=== PATIENT | female | born 1975 | race African-American/Black ===

== ENCOUNTER → 2016-12-22 | Outpatient (CLI) | payer OTHER ==
[2015-01-06 22:00] VITALS: BP 151/86
--- NOTE | 2016-12-22 12:26 | RAD ---
Chest, 2 views, 12/22/2016: History: Cough, dyspnea, lung nodule Comparison is made to a study from 10/17/2013. The heart size and pulmonary vascularity are normal. No pulmonary infiltrates are seen. There is a calcified granuloma in the left base. There is no evidence of pleural fluid. IMPRESSION: No acute cardiopulmonary abnormality is detected.
== END | disposition home or self-care (01) ==
LOC: RAD 11:41
PROVIDERS: ATTEND Family Medicine
DX: R06.00 Dyspnea, unspecified (principal); R05 Cough; R07.89 Other chest pain
CPT/HCPCS: 71020

== ENCOUNTER 2017-05-16 19:15 | Emergency (ER) | payer OTHER ==
[~2017-05-16] VITALS: Ht 154.9 cm; Wt 81.6 kg
[2017-05-16 20:00] LABS: BASO % 0 % (0-3); EOS % 2 % (0-3); HEMATOCRIT 41.6 % (36.0-47.0); HEMOGLOBIN 12.9 g/dL (12.0-15.5); LYMPH # 1.9 x10^3/uL (1.0-4.8); LYMPH % 17 % (24-48); MEAN CORPUSCULAR HEMOGLOBIN 22 pg (25-35); MEAN CORPUSCULAR HGB CONC 31 g/dL (31-37); MEAN CORPUSCULAR VOLUME 71 fL (79-100); MONO % 5 % (0-9); NEUT % 76 % (31-73); PLATELET COUNT 215 x10^3/uL (140-400); RED BLOOD COUNT 5.83 x10^6/uL (3.50-5.40); RED CELL DISTRIBUTION WIDTH 14.5 % (11.5-14.5); WHITE BLOOD COUNT 11.1 x10^3/uL (4.0-11.0)
[2017-05-16] MEDS ORDERED: HYDROmorphone 2 MG/ML VIAL IV ONE ×2 (20:00→21:45)
[2017-05-16] MEDS ORDERED: ONDANSETRON PF 4 MG/2 ML VIAL. IV ONE (20:00)
[2017-05-16] MEDS ORDERED: IV NORMAL SALINE 1000ML BAG 1,000 ML IV ONE (20:00)
[2017-05-16 20:02] LABS: BILIRUBIN,URINE NEGATIVE (NEG); GLUCOSE,URINE NEGATIVE (NEG); NITRITE,URINE NEGATIVE (NEG); PH,URINE 5.5; PROTEIN,URINE NEGATIVE (NEG-TRACE); UROBILINOGEN,URINE 0.2 mg/dL (0.2 mg/dL)
[2017-05-16 20:17] LABS: BACTERIA,URINE 0 /HPF (0-FEW); RBC,URINE 0 /HPF (0-2); SQUAMOUS EPITHELIAL CELL,UR FEW /LPF; WBC,URINE 0 /HPF (0-4)
[2017-05-16 20:18] LABS: CALCIUM 8.9 mg/dL (8.5-10.1); CREATININE 0.7 mg/dL (0.6-1.0); GFR 112.1; POTASSIUM 3.6 mmol/L (3.5-5.1)
[2017-05-16 20:22] LABS: ALBUMIN 3.9 g/dL (3.4-5.0); TOTAL BILIRUBIN 0.5 mg/dL (0.2-1.0); TOTAL PROTEIN 7.9 g/dL (6.4-8.2)
[2017-05-16 20:45] LABS: HYPOCHROMIA MOD; MICROCYTOSIS MOD; PLT ESTIMATE ADEQUATE (ADEQUATE); POIKILOCYTOSIS SLIGHT
--- NOTE | 2017-05-16 20:49 | RAD ---
EXAM: Abdomen sonogram limited. HISTORY: Right upper quadrant pain. TECHNIQUE: Sonographic imaging of the abdomen was performed. COMPARISON: CT dated 01/06/2015. FINDINGS: There is mild hepatomegaly. No focal hepatic lesion is seen. The gallbladder is unremarkable. The common bile duct is normal in caliber, measuring 3.6 mm. The right kidney, pancreas and inferior vena cava are unremarkable. There is a positive sonographic Mcgill's sign. IMPRESSION: 1. Positive sonographic Mcgill's sign. The gallbladder is sonographically unremarkable. 2. Mild hepatomegaly. Electronically signed by: Danae Lee MD (05/16/2017 8:45 PM)
[2017-05-16] MEDS ORDERED: HYOS0.1265 SL (21:44)
--- NOTE | 2017-05-16 21:44 | PHYS DOC ---
Past Medical History Past Medical History: Asthma, GERD, Hypertension Additional Past Medical Histor: constipation, "digestive problems" Past Surgical History: Hysterectomy Additional Past Surgical Histo: hernia Alcohol Use: None Drug Use: None Adult General Chief Complaint Chief Complaint: ABDOMINAL PAIN HPI HPI Patient is a 42 year old female who presents here today complaining of right- sided pain. Patient reports pain in the upper quadrant. Patient has any fevers shakes chills. Patient did have nausea vomiting today while she was worked. Patient has a dysuria frequency or urgency. Patient denies any vaginal discharge. Patient does have a history of hypertension. And asthma. Patient has a liver longer kidney problems. Patient reports that she's had surgery for hysterectomy and a hemorrhagic ovarian cyst. Patient is allergic to multiple nonsteroidal medications. Patient reports the pain is colicky in nature. Patient reports that the pain increases after meals. Review of systems Constitutional: Denies fever or chills [] Eyes: Denies change in visual acuity, redness, or eye pain [] All other review systems are negative except as documented in the history of present illness portion. Physical exam Constitutional: Well developed, well nourished, no acute distress, non-toxic appearance. [] HENT: Normocephalic, atraumatic, bilateral external ears normal, oropharynx moist, no oral exudates, nose normal. [] Eyes: conjunctiva normal, no discharge. [] Neck: Normal range of motion, no tenderness, supple, no stridor. [] Cardiovascular:Heart rate regular rhythm, Lungs & Thorax: Bilateral breath sounds clear to auscultation [] Abdomen: Bowel sounds normal, soft, no tenderness, no masses, no pulsatile masses. Patient was tenderness greatest in the right upper quadrant. Patient has no rebound or guarding. Patient does not present with any signs or symptoms O be consistent with an acute surgical abdomen. Patient does not have a Mcgill sign. No McBurney's point tenderness. No psoas or obturator signs. [] Skin: Warm, dry, Back: No tenderness, Extremities: No tenderness, no cyanosis, Neurologic: Alert and oriented X 3, normal motor function, normal sensory function, no focal deficits noted. [] Psychologic: Affect normal, judgement normal, mood normal. [] This is a 42-year-old female who presents here today complaining of right upper quadrant pain. Pain is consistent with likely cholelithiasis. Patient had a ER workup including CBC CMP lipase and an ultrasound of her right upper quadrant. Patient's ER workup has been unremarkable. Patient has received Dilaudid and Zofran as well as IV fluids. Patient reports she still has some discomfort. Given the patient's allergic to multiple nonsteroidals, the only choice we had was narcotic pain meds in the ED. I do not feel comfortable sending of the patient with narcotic pain meds for this discomfort. I have given her 2 doses of Dilaudid in the ED to assist her until she is able see her primary care doctor in the morning. Current Medications Current Medications Current Medications Medications (Trade) Dose Ordered Sig/Bhanu Start Time Stop Time Status Last Admin Dose Admin Hydromorphone HCl (Dilaudid) 1 mg 1X ONCE 05/16/17 21:45 05/16/17 21:46 Ondansetron HCl (Zofran) 4 mg 1X ONCE 05/16/17 20:00 05/16/17 20:01 DC 05/16/17 20:00 4 MG Sodium Chloride 1,000 ml @ 1,000 mls/hr 1X ONCE 05/16/17 20:00 05/16/17 20:59 DC 05/16/17 19:58 1,000 MLS/HR Allergies Allergies Allergies Coded Allergies Type Severity Reaction Last Updated Verified ibuprofen Allergy Severe Anaphylaxis 01/06/15 Yes naproxen Allergy Severe Anaphylaxis 01/06/15 Yes tramadol Allergy Intermediate rash 05/16/17 Yes Current Patient Data Vital Signs Vital Signs Date Time Temp Pulse Resp B/P (MAP) Pulse Ox O2 Delivery O2 Flow Rate FiO2 05/16/17 21:20 99 16 157/88 (111) 95 Room Air 05/16/17 19:21 98.4 98.4 Lab Values Laboratory Tests Test 05/16/17 19:27 05/16/17 19:50 White Blood Count 11.1 x10^3/uL (4.0-11.0) H Red Blood Count 5.83 x10^6/uL (3.50-5.40) H Hemoglobin 12.9 g/dL (12.0-15.5) Hematocrit 41.6 % (36.0-47.0) Mean Corpuscular Volume 71 fL (79-100) L Mean Corpuscular Hemoglobin 22 pg (25-35) L Mean Corpuscular Hemoglobin Concent 31 g/dL (31-37) Red Cell Distribution Width 14.5 % (11.5-14.5) Platelet Count 215 x10^3/uL (140-400) Neutrophils (%) (Auto) 76 % (31-73) H Lymphocytes (%) (Auto) 17 % (24-48) L Monocytes (%) (Auto) 5 % (0-9) Eosinophils (%) (Auto) 2 % (0-3) Basophils (%) (Auto) 0 % (0-3) Neutrophils # (Auto) 8.4 x10^3uL (1.8-7.7) H Lymphocytes # (Auto) 1.9 x10^3/uL (1.0-4.8) Monocytes # (Auto) 0.5 x10^3/uL (0.0-1.1) Eosinophils # (Auto) 0.2 x10^3/uL (0.0-0.7) Basophils # (Auto) 0.0 x10^3/uL (0.0-0.2) Platelet Estimate Adequate (ADEQUATE) Hypochromasia Mod Poikilocytosis Slight Anisocytosis Microcytosis Mod Sodium Level 142 mmol/L (136-145) Potassium Level 3.6 mmol/L (3.5-5.1) Chloride Level 106 mmol/L (98-107) Carbon Dioxide Level 25 mmol/L (21-32) Anion Gap 11 (6-14) Blood Urea Nitrogen 14 mg/dL (7-20) Creatinine 0.7 mg/dL (0.6-1.0) Estimated GFR (Cockcroft-Gault) 112.1 BUN/Creatinine Ratio 20 (6-20) Glucose Level 84 mg/dL (70-99) Calcium Level 8.9 mg/dL (8.5-10.1) Total Bilirubin 0.5 mg/dL (0.2-1.0) Aspartate Amino Transferase (AST) 17 U/L (15-37) Alanine Aminotransferase (ALT) 22 U/L (14-59) Alkaline Phosphatase 79 U/L (46-116) Total Protein 7.9 g/dL (6.4-8.2) Albumin 3.9 g/dL (3.4-5.0) Albumin/Globulin Ratio 1.0 (1.0-1.7) Lipase 128 U/L (73-393) Urine Collection Type Unknown Urine Color Yellow Urine Clarity Clear Urine pH 5.5 Urine Specific [place] >=1.030 Urine Protein Negative mg/dL (NEG-TRACE) Urine Glucose (UA) Negative mg/dL (NEG) Urine Ketones (Stick) Trace mg/dL (NEG) Urine Blood Negative (NEG) Urine Nitrite Negative (NEG) Urine Bilirubin Negative (NEG) Urine Urobilinogen Dipstick 0.2 mg/dL (0.2 mg/dL) Urine Leukocyte Esterase Negative (NEG) Urine RBC 0 /HPF (0-2) Urine WBC 0 /HPF (0-4) Urine Squamous Epithelial Cells Few /LPF Urine Bacteria 0 /HPF (0-FEW) Urine Mucus Mod /LPF Laboratory Tests 05/16/17 19:27 Laboratory Tests 05/16/17 19:27 EKG EKG [] Radiology/Procedures Radiology/Procedures [] Course & Med Decision Making Course & Med Decision Making Pertinent Labs and Imaging studies reviewed. (See chart for details) [] Dragon Disclaimer Dragon Disclaimer This electronic medical record was generated, in whole or in part, using a voice recognition dictation system. Departure Departure Impression: Primary Impression: Abdominal pain Disposition: 01 HOME, SELF-CARE Condition: STABLE Referrals: ALEJANDRA BURGER MD (PCP) Patient Instructions: Abdominal Pain (Nonspecific) Additional Instructions: Please make an appointment to see her family doctor so that he can get further evaluated for the pain the ER having. Her doctor may opt to perform or order a stat he called a HIDA scan in order to further assess your gallbladder. Your gallbladder studies in the ED so far have been all normal. Scripts Hyoscyamine Sulfate (LEVSIN-SL) 0.125 Mg Tab.subl 0.125 MG SL Q6-8HRS Y for abdominal cramps, #10 Prov: KATIE DIAZ MD 05/16/17 KATIE DIAZ MD May 16, 2017 21:44
[2017-05-16 21:58] VITALS: BP 155/78
== END 2017-05-16 22:05 | disposition home or self-care (01) ==
LOC: ER 19:15
DX: R10.11 Right upper quadrant pain (principal); R11.2 Nausea with vomiting, unspecified; I10 Essential (primary) hypertension; J45.909 Unspecified asthma, uncomplicated; K21.9 Gastro-esophageal reflux disease without esophagitis; Z90.710 Acquired absence of both cervix and uterus; Z88.5 Allergy status to narcotic agent; Z88.8 Allergy status to other drugs, medicaments and biological substances
CPT/HCPCS: 36415; 76705; 80053; 81001; 83690; 85007; 85027; 96361; 96374; 96375; 96376; 99285; J1170; J2405; J7030

== ENCOUNTER 2017-07-01 18:53 | Emergency (ER) | payer OTHER ==
[~2017-07-01] VITALS: Ht 154.9 cm; Wt 76.7 kg
[~2017-07-01 18:53] MED LIST: HYOS0.1265 SL
[2017-07-01 19:22] VITALS: BP 150/81
[2017-07-01] MEDS ORDERED: TRAM50TA PO (19:27)
[2017-07-01] MEDS ORDERED: ORPH100T PO (19:27)
--- NOTE | 2017-07-01 19:28 | PHYS DOC ---
Past Medical History Past Medical History: Asthma, GERD, Hypertension Additional Past Medical Histor: constipation, "digestive problems" Past Surgical History: Hysterectomy Additional Past Surgical Histo: hernia Alcohol Use: None Drug Use: None Adult General Chief Complaint Chief Complaint: UPPER EXTREMITY PAIN HPI HPI Patient is a 42 year old female presents to the emergency room [place] with right upper back pain. She states she's had discomfort for 3 days. No other complaints. 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 Review of Systems Review of Systems Constitutional: Denies fever or chills [] Eyes: Denies change in visual acuity, redness, or eye pain [] HENT: Denies nasal congestion or sore throat [] Respiratory: Denies cough or shortness of breath [] Cardiovascular: No additional information not addressed in HPI [] GI: Denies abdominal pain, nausea, vomiting, bloody stools or diarrhea [] : Denies dysuria or hematuria [] Musculoskeletal: Right upper back pain Integument: Denies rash or skin lesions [] Neurologic: Denies headache, focal weakness or sensory changes [] Endocrine: Denies polyuria or polydipsia [] Allergies Allergies Allergies Coded Allergies Type Severity Reaction Last Updated Verified ibuprofen Allergy Severe Anaphylaxis 01/06/15 Yes naproxen Allergy Severe Anaphylaxis 01/06/15 Yes tramadol Allergy Intermediate rash 05/16/17 Yes Physical Exam Physical Exam Constitutional: Well developed, well nourished, no acute distress, non-toxic appearance. [] HENT: Normocephalic, atraumatic, bilateral external ears normal, oropharynx moist, no oral exudates, nose normal. [] Eyes: PERRLA, EOMI, conjunctiva normal, no discharge. [] Neck: Normal range of motion, no paracervical or midline tenderness, supple, no stridor. [] Cardiovascular:Heart rate regular rhythm, no murmur [] Lungs & Thorax: Bilateral breath sounds clear to auscultation [] Abdomen: Bowel sounds normal, soft, no tenderness, no masses, no pulsatile masses. [] Skin: Warm, dry, no erythema, no rash. [] Back: Tenderness to palpate over the right trapezius. Extremities: No tenderness, no cyanosis, no clubbing, ROM intact, no edema. [] Neurologic: Alert and oriented X 3, normal motor function, normal sensory function, no focal deficits noted. [] Psychologic: Affect normal, judgement normal, mood normal. [] EKG EKG [] Radiology/Procedures Radiology/Procedures [] Course & Med Decision Making Course & Med Decision Making Pertinent Labs and Imaging studies reviewed. (See chart for details) [] Dragon Disclaimer Dragon Disclaimer This electronic medical record was generated, in whole or in part, using a voice recognition dictation system. Departure Departure Impression: Primary Impression: Trapezius strain Disposition: HOME, SELF-CARE Condition: STABLE Referrals: ALEJANDRA BURGER MD (PCP) Patient Instructions: Muscle Strain Scripts Tramadol Hcl (TRAMADOL HCL) 50 Mg Tablet 50 MG PO Q6H Y for PAIN, #10 TAB 0 Refills Prov: ANNA MATUTE APRN 07/01/17 Orphenadrine Citrate (ORPHENADRINE CITRATE) 100 Mg Tablet.er 1 TAB PO BID, #20 TAB 1 Refill Prov: ANNA MATUTE APRN 07/01/17 Problem Qualifiers Primary Impression: Trapezius strain Encounter type: initial encounter Laterality: right Qualified Codes: S46.811A - Strain of other muscles, fascia and tendons at shoulder and upper arm level, right arm, initial encounter ANNA MATUET APRN Jul 01, 2017 19:28
== END 2017-07-01 19:30 | disposition home or self-care (01) ==
LOC: ER 18:53
DX: S46.811A Strain of other muscles, fascia and tendons at shoulder and upper arm level, right arm, initial encounter (principal); J45.909 Unspecified asthma, uncomplicated; K21.9 Gastro-esophageal reflux disease without esophagitis; I10 Essential (primary) hypertension; Z90.710 Acquired absence of both cervix and uterus; Z88.5 Allergy status to narcotic agent; Z88.8 Allergy status to other drugs, medicaments and biological substances; Z88.6 Allergy status to analgesic agent; X58.XXXA Exposure to other specified factors, initial encounter; Y93.89 Activity, other specified; Y92.69 Other specified industrial and construction area as the place of occurrence of the external cause; Y99.8 Other external cause status
CPT/HCPCS: 99284

== ENCOUNTER 2017-08-08 00:33 | Emergency (ER) | payer OTHER ==
[~2017-08-08] VITALS: Ht 154.9 cm; Wt 76.7 kg
[~2017-08-08 00:33] MED LIST changes: +ORPH100T PO; +TRAM50TA PO
[2017-08-08 02:11] LABS: BILIRUBIN,URINE NEGATIVE (NEG); GLUCOSE,URINE NEGATIVE (NEG); NITRITE,URINE NEGATIVE (NEG); PH,URINE 5.5; PROTEIN,URINE NEGATIVE (NEG-TRACE); UROBILINOGEN,URINE 0.2 mg/dL (0.2 mg/dL)
[2017-08-08] MEDS ORDERED: FAMOTIDINE 20 MG/2 ML VIAL IVP ONE (02:15)
[2017-08-08] MEDS ORDERED: ONDANSETRON PF 4 MG/2 ML VIAL. IV ONE (02:15)
[2017-08-08] MEDS ORDERED: IV NORMAL SALINE 1000ML BAG 1,000 ML IV SCH (02:15)
[2017-08-08 02:16] LABS: BACTERIA,URINE 0 /HPF (0-FEW); RBC,URINE 0 /HPF (0-2); WBC,URINE OCC /HPF (0-4)
[2017-08-08 02:17] LABS: SQUAMOUS EPITHELIAL CELL,UR FEW /LPF
[2017-08-08 02:18] LABS: BASO # 0.1 x10^3/uL (0.0-0.2); BASO % 1 % (0-3); EOS % 3 % (0-3); HEMATOCRIT 38.8 % (36.0-47.0); LYMPH % 20 % (24-48); MEAN CORPUSCULAR HEMOGLOBIN 22 pg (25-35); MEAN CORPUSCULAR HGB CONC 31 g/dL (31-37); MEAN CORPUSCULAR VOLUME 72 fL (79-100); MONO % 8 % (0-9); NEUT % 69 % (31-73); PLATELET COUNT 198 x10^3/uL (140-400); WHITE BLOOD COUNT 9.9 x10^3/uL (4.0-11.0)
[2017-08-08] MEDS: fentaNYL PF VIAL 100 MCG/2 ML VIAL IV PRN ×2 (02:19→02:46)
[2017-08-08 02:30] LABS: CALCIUM 8.7 mg/dL (8.5-10.1); CREATININE 0.7 mg/dL (0.6-1.0); GFR 112.1; POTASSIUM 3.6 mmol/L (3.5-5.1)
[2017-08-08 02:36] LABS: ALBUMIN 3.6 g/dL (3.4-5.0); TOTAL BILIRUBIN 0.3 mg/dL (0.2-1.0); TOTAL PROTEIN 7.3 g/dL (6.4-8.2)
[2017-08-08 02:47] LABS: HYPOCHROMIA SLIGHT; MICROCYTOSIS MOD; PLT ESTIMATE ADEQUATE (ADEQUATE)
[2017-08-08] MEDS ORDERED: ONDA4TAB10 SL (03:12)
[2017-08-08] MEDS ORDERED: HYDR-971 PO (03:12)
--- NOTE | 2017-08-08 03:12 | PHYS DOC ---
Past Medical History Past Medical History: Asthma, GERD, Hypertension Additional Past Medical Histor: constipation, "digestive problems" Past Surgical History: Hysterectomy Additional Past Surgical Histo: hernia Alcohol Use: None Drug Use: None Adult General Chief Complaint Chief Complaint: ABDOMINAL PAIN HPI HPI Patient is a 42 year old female who presents with complaint of right-sided abdominal pain. Patient states symptoms started 4 days ago and have been persistent that time. Patient states that she has had multiple episodes of similar symptoms in the past and has been seen at [facility]. She has had multiple emergency department workups including ultrasound imaging and CT imaging. Patient states that she was there approximately one month ago for her last evaluation. The patient states that she has been referred to a GI specialist for further evaluation as the cause of her symptoms has not been able to be diagnosed at this time. Patient states that the pain is dull and burning in nature. Patient states that it is localized to her right upper quadrant. Patient denies radiation of pain into her back or groin. Patient has had nausea but no vomiting or diarrhea associated with her symptoms. Patient has had no fevers. The patient has taken only [id number] Tylenol for symptoms but states that this is not helping her. The patient rates her pain currently as Review of Systems Review of Systems Constitutional: Denies fever or chills [] Eyes: Denies change in visual acuity, redness, or eye pain [] HENT: Denies nasal congestion or sore throat [] Respiratory: Denies cough or shortness of breath [] Cardiovascular: Denies chest pain or edema[] GI: Abdominal pain, nausea, denies vomiting or diarrhea[] : Denies dysuria or hematuria [] Musculoskeletal: Denies back pain or joint pain [] Integument: Denies rash or skin lesions [] Neurologic: Denies headache, focal weakness or sensory changes [] Current Medications Current Medications Current Medications Medications (Trade) Dose Ordered Sig/Bhanu Start Time Stop Time Status Last Admin Dose Admin Famotidine (Pepcid) 20 mg 1X ONCE 08/08/17 02:15 08/08/17 02:16 DC 08/08/17 02:18 20 MG Fentanyl Citrate (Fentanyl 2ml Vial) 50 mcg PRN Q15MIN PRN 08/08/17 02:15 08/09/17 02:14 08/08/17 02:46 50 MCG Ondansetron HCl (Zofran) 4 mg 1X ONCE 08/08/17 02:15 08/08/17 02:16 DC 08/08/17 02:17 4 MG Sodium Chloride 1,000 ml @ 1,000 mls/hr Q1H 08/08/17 02:15 08/08/17 03:14 08/08/17 02:17 1,000 MLS/HR Allergies Allergies Allergies Coded Allergies Type Severity Reaction Last Updated Verified ibuprofen Allergy Severe Anaphylaxis 01/06/15 Yes naproxen Allergy Severe Anaphylaxis 01/06/15 Yes tramadol Allergy Intermediate rash 05/16/17 Yes Physical Exam Physical Exam Constitutional: Alert, afebrile, appears in mild to moderate discomfort. [] HENT: Normocephalic, atraumatic, bilateral external ears normal, oropharynx moist, no oral exudates, nose normal. [] Eyes: PERRLA, EOMI, conjunctiva normal, no discharge. [] Neck: Normal range of motion, no tenderness, supple, no stridor. [] Cardiovascular:Heart rate regular rhythm, no murmur [] Lungs & Thorax: Bilateral breath sounds clear to auscultation [] Abdomen: Bowel sounds normal, soft, right upper quadrant tenderness to palpation , no masses, no pulsatile masses. [] Skin: Warm, dry, no erythema, no rash. [] Back: No tenderness, no CVA tenderness. [] Extremities: No tenderness, no cyanosis, no clubbing, ROM intact, no edema. [] Neurologic: Alert and oriented X 3, normal motor function, normal sensory function, no focal deficits noted. [] Current Patient Data Vital Signs Vital Signs Date Time Temp Pulse Resp B/P (MAP) Pulse Ox O2 Delivery O2 Flow Rate FiO2 08/08/17 01:55 98.1 89 18 136/79 (98) 98 Room Air 98.1 Lab Values Laboratory Tests Test 08/08/17 01:18 08/08/17 02:04 08/08/17 02:11 Urine Collection Type Unknown Urine Color Yellow Urine Clarity Clear Urine pH 5.5 Urine Specific [place] >=1.030 Urine Protein Negative mg/dL (NEG-TRACE) Urine Glucose (UA) Negative mg/dL (NEG) Urine Ketones (Stick) Negative mg/dL (NEG) Urine Blood Negative (NEG) Urine Nitrite Negative (NEG) Urine Bilirubin Negative (NEG) Urine Urobilinogen Dipstick 0.2 mg/dL (0.2 mg/dL) Urine Leukocyte Esterase Negative (NEG) Urine RBC 0 /HPF (0-2) Urine WBC Occ /HPF (0-4) Urine Squamous Epithelial Cells Few /LPF Urine Bacteria 0 /HPF (0-FEW) Urine Mucus Mod /LPF POC Urine HCG, Qualitative Hcg negative (Negative) White Blood Count 9.9 x10^3/uL (4.0-11.0) Red Blood Count 5.40 x10^6/uL (3.50-5.40) Hemoglobin 12.0 g/dL (12.0-15.5) Hematocrit 38.8 % (36.0-47.0) Mean Corpuscular Volume 72 fL (79-100) L Mean Corpuscular Hemoglobin 22 pg (25-35) L Mean Corpuscular Hemoglobin Concent 31 g/dL (31-37) Red Cell Distribution Width 15.0 % (11.5-14.5) H Platelet Count 198 x10^3/uL (140-400) Neutrophils (%) (Auto) 69 % (31-73) Lymphocytes (%) (Auto) 20 % (24-48) L Monocytes (%) (Auto) 8 % (0-9) Eosinophils (%) (Auto) 3 % (0-3) Basophils (%) (Auto) 1 % (0-3) Neutrophils # (Auto) 6.8 x10^3uL (1.8-7.7) Lymphocytes # (Auto) 2.0 x10^3/uL (1.0-4.8) Monocytes # (Auto) 0.8 x10^3/uL (0.0-1.1) Eosinophils # (Auto) 0.3 x10^3/uL (0.0-0.7) Basophils # (Auto) 0.1 x10^3/uL (0.0-0.2) Platelet Estimate Adequate (ADEQUATE) Hypochromasia Slight Microcytosis Mod Sodium Level 142 mmol/L (136-145) Potassium Level 3.6 mmol/L (3.5-5.1) Chloride Level 106 mmol/L (98-107) Carbon Dioxide Level 26 mmol/L (21-32) Anion Gap 10 (6-14) Blood Urea Nitrogen 16 mg/dL (7-20) Creatinine 0.7 mg/dL (0.6-1.0) Estimated GFR (Cockcroft-Gault) 112.1 BUN/Creatinine Ratio 23 (6-20) H Glucose Level 117 mg/dL (70-99) H Calcium Level 8.7 mg/dL (8.5-10.1) Total Bilirubin 0.3 mg/dL (0.2-1.0) Aspartate Amino Transferase (AST) 12 U/L (15-37) L Alanine Aminotransferase (ALT) 14 U/L (14-59) Alkaline Phosphatase 75 U/L (46-116) Total Protein 7.3 g/dL (6.4-8.2) Albumin 3.6 g/dL (3.4-5.0) Albumin/Globulin Ratio 1.0 (1.0-1.7) Lipase 159 U/L (73-393) Laboratory Tests 08/08/17 02:11 Laboratory Tests 08/08/17 02:11 EKG EKG Not performed[] Radiology/Procedures Radiology/Procedures Not performed[] Course & Med Decision Making Course & Med Decision Making Pertinent Labs and Imaging studies reviewed. (See chart for details) Patient was given IV fluids, Zofran, and fentanyl in the emergency department. Patient's lab work shows no significant abnormalities. Patient's had multiple workups for the symptoms and is currently awaiting GI follow-up. Patient's vital signs are stable. Workup shows no indication for emergent GI evaluation. Patient will be prescribed [place] and Zofran for continued outpatient treatment of symptoms. Advised return emergency department for any worsening symptoms. Patient voiced understanding and in agreement with treatment plan. Dragon Disclaimer Dragon Disclaimer This electronic medical record was generated, in whole or in part, using a voice recognition dictation system. Departure Departure Impression: Primary Impression: Abdominal pain Disposition: 01 HOME, SELF-CARE Condition: IMPROVED Referrals: ALEJANDRA BURGER MD (PCP) Patient Instructions: Abdominal Pain Additional Instructions: Follow-up with your primary doctor in the next 3-5 days for reevaluation. Follow -up with your follow up rep in the next 1-2 weeks. Return to the emergency department for any worsening symptoms. Scripts Ondansetron (ZOFRAN ODT) 4 Mg Tab.rapdis 1 TAB SL Q8HRS Y for PAIN, #15 TAB Prov: DIMITRI MONTGOMERY MD 08/08/17 Hydrocodone/Apap 5-325 (NORCO 5-325 TABLET) 1 Each Tablet 1-2 TAB PO Q4-6HRS Y for PAIN, #20 TAB Prov: DIMITRI MONTGOMERY MD 08/08/17 Problem Qualifiers Primary Impression: Abdominal pain Abdominal location: right upper quadrant Qualified Codes: R10.11 - Right upper quadrant pain DIMITRI MONTGOMERY MD Aug 08, 2017 03:12
[2017-08-08 03:20] VITALS: BP 138/78
== END 2017-08-08 04:01 | disposition home or self-care (01) ==
LOC: ER 00:33
DX: R10.11 Right upper quadrant pain (principal); R11.0 Nausea; K21.9 Gastro-esophageal reflux disease without esophagitis; I10 Essential (primary) hypertension; J45.909 Unspecified asthma, uncomplicated; Z90.710 Acquired absence of both cervix and uterus; Z88.6 Allergy status to analgesic agent
CPT/HCPCS: 36415; 80053; 81001; 81025; 83690; 85025; 96361; 96374; 96375; 99285; J2405; J3010; J7030; S0028

== ENCOUNTER 2017-09-05 09:52 | Emergency (ER) | payer OTHER ==
[~2017-09-05] VITALS: Ht 154.9 cm; Wt 77.1 kg
[~2017-09-05 09:52] MED LIST changes: +HYDR-971 PO; +ONDA4TAB10 SL
[2017-09-05] MEDS ORDERED: fentaNYL PF VIAL 100 MCG/2 ML VIAL IV ONE (10:45)
[2017-09-05] MEDS ORDERED: ONDANSETRON PF 4 MG/2 ML VIAL. IV ONE (10:45)
[2017-09-05 10:51] LABS: POTASSIUM ISTAT 4.3 mmol/L (3.5-5.0)
--- NOTE | 2017-09-05 10:58 | PHYS DOC ---
Past Medical History Past Medical History: Asthma, GERD, Hypertension Additional Past Medical Histor: constipation, "digestive problems" Past Surgical History: Hysterectomy Additional Past Surgical Histo: hernia Alcohol Use: Occasionally Drug Use: None Adult General Chief Complaint Chief Complaint: ABDOMINAL PAIN HPI HPI Patient is a 42 year old female who presents with 4 days of lower abdominal pain that has been persistent and mostly in the RLL. reports nausea and vomiting, subjective fevers. Pt had outside US performed and showed structure resembling an edematous appendix in RL quadrant, not significantly dilated, no evidence of surrounding fluid. Recommeneded CT. Pt denies vag bleeding or discharge. H/o hysterectomy, left ovary remains. PCP is Dr. Florentino Review of Systems Review of Systems Constitutional: Denies fever or chills [] Eyes: Denies change in visual acuity, redness, or eye pain [] HENT: Denies nasal congestion or sore throat [] Respiratory: Denies cough or shortness of breath [] Cardiovascular: No additional information not addressed in HPI [] GI: Denies abdominal pain, nausea, vomiting, bloody stools or diarrhea [] : Denies dysuria or hematuria [] Musculoskeletal: Denies back pain or joint pain [] Integument: Denies rash or skin lesions [] Neurologic: Denies headache, focal weakness or sensory changes [] Endocrine: Denies polyuria or polydipsia [] Current Medications Current Medications Current Medications Medications (Trade) Dose Ordered Sig/[place] Start Time Stop Time Status Last Admin Dose Admin Fentanyl Citrate (Fentanyl 2ml Vial) 50 mcg 1X ONCE 09/05/17 10:45 09/05/17 10:47 DC 09/05/17 10:57 50 MCG Info (Do NOT chart on this entry -- for MONITORING) 1 each PRN DAILY PRN 09/05/17 11:00 09/07/17 10:59 Iohexol (Omnipaque 300 Mg/ml) 75 ml 1X ONCE 09/05/17 11:30 09/05/17 11:31 DC 09/05/17 11:10 75 ML Morphine Sulfate 4 mg 1X ONCE 09/05/17 12:00 09/05/17 12:01 DC 09/05/17 11:54 4 MG Ondansetron HCl (Zofran) 4 mg 1X ONCE 09/05/17 10:45 09/05/17 10:47 DC 09/05/17 10:57 4 MG Allergies Allergies Allergies Coded Allergies Type Severity Reaction Last Updated Verified ibuprofen Allergy Severe Anaphylaxis 01/06/15 Yes naproxen Allergy Severe Anaphylaxis 01/06/15 Yes tramadol Allergy Intermediate rash 05/16/17 Yes Physical Exam Physical Exam Constitutional: Well developed, well nourished, no acute distress, non-toxic appearance. [] HENT: Normocephalic, atraumatic, bilateral external ears normal, oropharynx moist, no oral exudates, nose normal. [] Eyes: PERRLA, EOMI, conjunctiva normal, no discharge. [] Neck: Normal range of motion, no tenderness, supple, no stridor. [] Cardiovascular:Heart rate regular rhythm, no murmur [] Lungs & Thorax: Bilateral breath sounds clear to auscultation [] Abdomen: Bowel sounds normal, soft, no tenderness, no masses, no pulsatile masses. [] Skin: Warm, dry, no erythema, no rash. [] Back: No tenderness, no CVA tenderness. [] Extremities: No tenderness, no cyanosis, no clubbing, ROM intact, no edema. [] Neurologic: Alert and oriented X 3, normal motor function, normal sensory function, no focal deficits noted. [] Psychologic: Affect normal, judgement normal, mood normal. [] Current Patient Data Vital Signs Vital Signs Date Time Temp Pulse Resp B/P (MAP) Pulse Ox O2 Delivery O2 Flow Rate FiO2 09/05/17 11:54 22 96 Room Air 09/05/17 10:23 98.0 101 168/97 (120) 98.0 Lab Values Laboratory Tests Test 09/05/17 10:25 09/05/17 10:40 09/05/17 10:42 09/05/17 11:45 Urine Collection Type Unknown Urine Color Yellow Urine Clarity Clear Urine pH 6.5 Urine Specific [place] 1.015 Urine Protein Negative mg/dL (NEG-TRACE) Urine Glucose (UA) Negative mg/dL (NEG) Urine Ketones (Stick) Negative mg/dL (NEG) Urine Blood Negative (NEG) Urine Nitrite Negative (NEG) Urine Bilirubin Negative (NEG) Urine Urobilinogen Dipstick 0.2 mg/dL (0.2 mg/dL) Urine Leukocyte Esterase Negative (NEG) Urine RBC 0 /HPF (0-2) Urine WBC 0 /HPF (0-4) Urine Squamous Epithelial Cells Few /LPF Urine Bacteria 0 /HPF (0-FEW) White Blood Count 8.3 x10^3/uL (4.0-11.0) Red Blood Count 6.05 x10^6/uL (3.50-5.40) H Hemoglobin 13.6 g/dL (12.0-15.5) Hematocrit 42.7 % (36.0-47.0) Mean Corpuscular Volume 71 fL (79-100) L Mean Corpuscular Hemoglobin 23 pg (25-35) L Mean Corpuscular Hemoglobin Concent 32 g/dL (31-37) Red Cell Distribution Width 14.5 % (11.5-14.5) Platelet Count 190 x10^3/uL (140-400) Neutrophils (%) (Auto) 71 % (31-73) Lymphocytes (%) (Auto) 23 % (24-48) L Monocytes (%) (Auto) 5 % (0-9) Eosinophils (%) (Auto) 1 % (0-3) Basophils (%) (Auto) 1 % (0-3) Neutrophils # (Auto) 5.9 x10^3uL (1.8-7.7) Lymphocytes # (Auto) 1.9 x10^3/uL (1.0-4.8) Monocytes # (Auto) 0.4 x10^3/uL (0.0-1.1) Eosinophils # (Auto) 0.1 x10^3/uL (0.0-0.7) Basophils # (Auto) 0.1 x10^3/uL (0.0-0.2) Platelet Estimate Pending POC Hemoglobin 16.0 g/dL (12-15) H POC Hematocrit 47 % (36-40) H POC Sodium 142 mmol/L (135-145) POC Potassium 4.3 mmol/L (3.5-5.0) POC Chloride 105 mmol/L (98-110) POC Total CO2 27 mmol/L (23-32) Anion Gap 15 mmol/L (6-14) H POC Blood Urea Nitrogen 13 mg/dL (8-26) POC Creatinine 0.7 mg/dL (0.5-1.4) Glucose Level 86 mg/dL (70-99) POC Ionized Calcium (Yesi) 1.15 mmol/L (1.13-1.32) Total Bilirubin 0.9 mg/dL (0.2-1.0) Direct Bilirubin 0.2 mg/dL (0.0-0.2) Aspartate Amino Transferase (AST) 13 U/L (15-37) L Alanine Aminotransferase (ALT) 20 U/L (14-59) Alkaline Phosphatase 85 U/L (46-116) Total Protein 7.6 g/dL (6.4-8.2) Albumin 3.7 g/dL (3.4-5.0) Laboratory Tests 09/05/17 10:40 Laboratory Tests 09/05/17 10:42 EKG EKG [] Radiology/Procedures Radiology/Procedures CT abd/pelvis: Indication lower abdominal pain. Outside ultrasound demonstrating an edematous appendix. Axial images through the abdomen and pelvis were obtained. IV contrast, approximately 75 cc of Omnipaque 300 was administered. No oral contrast was administered. Note is made of a previous examination 01/06/2015. The lung bases are unremarkable. The liver and spleen appear unremarkable. The gallbladder appears grossly normal. The pancreas adrenal glands and kidneys appear normal. No mass inflammatory process or acute finding in the abdomen is seen. The appendix is not well demonstrated proximally, at its attachment to the cecum. There is a serpiginous structure, likely reflecting appendix, seen somewhat cephalad to the cecum consistent with the appendix and having a normal appearance. There are no secondary signs to suggest appendicitis. No definite acute finding in the pelvis is seen. The patient is status post hysterectomy. IMPRESSION: No definite acute finding seen in the abdomen or pelvis. A portion of the appendix is likely seen, as outlined above. Inflammatory changes, to suggest appendicitis, are not seen on this examination. If the clinical index of suspicion for appendicitis is high and symptoms persist a follow-up scan may be warranted [] Course & Med Decision Making Course & Med Decision Making Pertinent Labs and Imaging studies reviewed. (See chart for details) Pt initially given IV fentanyl for pain while labs obtained, pain not well controlled and IV morphine given. Labs and CT negative. then the patient revealed that this is not a new pain of the last 4 days, rather shes had intermittent abdominal pain for greater than 6 months and has had multiple workups, including evaluation of the gallbladder and appendix. She has f/u with GI doc coming up and I recommend she keep this appointment and follow-up with her PCP for further pain prescriptions. Recommend Tylenol for pain at this time. Dragon Disclaimer Dragon Disclaimer This electronic medical record was generated, in whole or in part, using a voice recognition dictation system. Departure Departure Impression: Primary Impression: Chronic abdominal pain Disposition: 01 HOME, SELF-CARE Condition: STABLE Referrals: ALEJANDRA FLORENTINO MD (PCP) TRISHA ARREAGA MD Sep 05, 2017 10:58
[2017-09-05] MEDS ORDERED: CONTRAST GIVEN MC PRN (11:00)
[2017-09-05 11:10] LABS: BASO # 0.1 x10^3/uL (0.0-0.2); BASO % 1 % (0-3); EOS % 1 % (0-3); HEMATOCRIT 42.7 % (36.0-47.0); HEMOGLOBIN 13.6 g/dL (12.0-15.5); LYMPH # 1.9 x10^3/uL (1.0-4.8); LYMPH % 23 % (24-48); MEAN CORPUSCULAR HEMOGLOBIN 23 pg (25-35); MEAN CORPUSCULAR HGB CONC 32 g/dL (31-37); MEAN CORPUSCULAR VOLUME 71 fL (79-100); MONO % 5 % (0-9); NEUT % 71 % (31-73); PLATELET COUNT 190 x10^3/uL (140-400); RED BLOOD COUNT 6.05 x10^6/uL (3.50-5.40); RED CELL DISTRIBUTION WIDTH 14.5 % (11.5-14.5); WHITE BLOOD COUNT 8.3 x10^3/uL (4.0-11.0)
[2017-09-05 11:15] LABS: BILIRUBIN,URINE NEGATIVE (NEG); GLUCOSE,URINE NEGATIVE (NEG); NITRITE,URINE NEGATIVE (NEG); PH,URINE 6.5; PROTEIN,URINE NEGATIVE (NEG-TRACE); UROBILINOGEN,URINE 0.2 mg/dL (0.2 mg/dL)
[2017-09-05] MEDS ORDERED: IOHEXOL 300 MG/ML 75 ML VIAL IV ONE (11:30)
[2017-09-05 11:31] LABS: BACTERIA,URINE 0 /HPF (0-FEW); RBC,URINE 0 /HPF (0-2); SQUAMOUS EPITHELIAL CELL,UR FEW /LPF; WBC,URINE 0 /HPF (0-4)
--- NOTE | 2017-09-05 11:38 | RAD ---
Indication lower abdominal pain. Outside ultrasound demonstrating an edematous appendix. Axial images through the abdomen and pelvis were obtained. IV contrast, approximately 75 cc of Omnipaque 300 was administered. No oral contrast was administered. Note is made of a previous examination 01/06/2015. The lung bases are unremarkable. The liver and spleen appear unremarkable. The gallbladder appears grossly normal. The pancreas adrenal glands and kidneys appear normal. No mass inflammatory process or acute finding in the abdomen is seen. The appendix is not well demonstrated proximally, at its attachment to the cecum. There is a serpiginous structure, likely reflecting appendix, seen somewhat cephalad to the cecum consistent with the appendix and having a normal appearance. There are no secondary signs to suggest appendicitis. No definite acute finding in the pelvis is seen. The patient is status post hysterectomy. IMPRESSION: No definite acute finding seen in the abdomen or pelvis. A portion of the appendix is likely seen, as outlined above. Inflammatory changes, to suggest appendicitis, are not seen on this examination. If the clinical index of suspicion for appendicitis is high and symptoms persist a follow-up scan may be warranted
[2017-09-05] MEDS ORDERED: MORPHINE SULFATE 4 MG/ML DISP.SYRIN. IV ONE (12:00)
[2017-09-05 12:02] VITALS: BP 143/77
[2017-09-05 12:08] LABS: ALBUMIN 3.7 g/dL (3.4-5.0); DIRECT BILIRUBIN 0.2 mg/dL (0.0-0.2); TOTAL BILIRUBIN 0.9 mg/dL (0.2-1.0); TOTAL PROTEIN 7.6 g/dL (6.4-8.2)
[2017-09-05 12:30] LABS: PLT ESTIMATE ADEQUATE (ADEQUATE)
[2017-09-05 12:31] LABS: HYPOCHROMIA MOD; MICROCYTOSIS MOD
== END 2017-09-05 12:37 | disposition home or self-care (01) ==
LOC: ER 09:52
DX: R10.30 Lower abdominal pain, unspecified (principal); G89.29 Other chronic pain; I10 Essential (primary) hypertension; J45.909 Unspecified asthma, uncomplicated; K21.9 Gastro-esophageal reflux disease without esophagitis; Z90.710 Acquired absence of both cervix and uterus; Z98.890 Other specified postprocedural states; Z88.6 Allergy status to analgesic agent
CPT/HCPCS: 36415; 74177; 80047; 80076; 81001; 85025; 96374; 96375; 99285; J2270; J2405; J3010; Q9967

== ENCOUNTER 2017-09-15 09:07 | Emergency (ER) | payer OTHER ==
[2017-09-15] MEDS ORDERED: ONDANSETRON PF 4 MG/2 ML VIAL. IV ONE (09:30)
[2017-09-15 10:18] LABS: BASO % 1 % (0-3); EOS % 1 % (0-3); HEMATOCRIT 41.4 % (36.0-47.0); LYMPH # 1.5 x10^3/uL (1.0-4.8); LYMPH % 20 % (24-48); MEAN CORPUSCULAR HEMOGLOBIN 22 pg (25-35); MEAN CORPUSCULAR HGB CONC 32 g/dL (31-37); MEAN CORPUSCULAR VOLUME 71 fL (79-100); MONO % 6 % (0-9); NEUT % 72 % (31-73); PLATELET COUNT 184 x10^3/uL (140-400); RED BLOOD COUNT 5.85 x10^6/uL (3.50-5.40); RED CELL DISTRIBUTION WIDTH 14.5 % (11.5-14.5); WHITE BLOOD COUNT 7.5 x10^3/uL (4.0-11.0)
[2017-09-15 10:23] LABS: CALCIUM 8.8 mg/dL (8.5-10.1); CREATININE 0.6 mg/dL (0.6-1.0); POTASSIUM 3.8 mmol/L (3.5-5.1)
[2017-09-15 10:29] LABS: ALBUMIN 3.6 g/dL (3.4-5.0); ALBUMIN/GLOBULIN RATIO 0.9 (1.0-1.7); TOTAL BILIRUBIN 1.2 mg/dL (0.2-1.0); TOTAL PROTEIN 7.6 g/dL (6.4-8.2)
[2017-09-15] MEDS ORDERED: LIDO:MAALOX:DONNATAL 1:1:1 15 ML SINGLE DOSE SWSW ONE (11:00)
[2017-09-15] MEDS ORDERED: DICYCLOMINE HCL 10 MG CAPSULE PO ONE (11:00)
[2017-09-15 12:21] LABS: BILIRUBIN,URINE NEGATIVE (NEG); GLUCOSE,URINE NEGATIVE (NEG); NITRITE,URINE NEGATIVE (NEG); PROTEIN,URINE NEGATIVE (NEG-TRACE); UROBILINOGEN,URINE 0.2 mg/dL (0.2 mg/dL)
[2017-09-15 12:33] LABS: RBC,URINE OCC /HPF (0-2)
--- NOTE | 2017-09-15 12:33 | RAD ---
Acute abdominal series to include a PA chest radiograph 09/15/2017 Clinical History: Abdominal pain for months. A PA digital radiograph of the chest was obtained. Supine and erect AP digital radiographs of the abdomen/pelvis were obtained. Comparison study is dated 12/22/2016. The cardiac and mediastinal silhouettes are within normal limits in size and configuration. No pulmonary infiltrate is seen. No pleural effusion or pneumothorax is noted. The abdominal bowel gas pattern is nonobstructive. There is no evidence of free air. No radiopaque calculus is seen. The osseous structures are grossly intact. Impression: Negative study.
[2017-09-15 12:34] LABS: BACTERIA,URINE FEW /HPF (0-FEW); SQUAMOUS EPITHELIAL CELL,UR MOD /LPF
[2017-09-15 12:37] LABS: BARBITURATES NEG (NEG); BENZODIAZEPINES NEG (NEG); CANNABINOIDS NEG (NEG); COCAINE NEG (NEG); METHADONE NEG (NEG); OPIATES NEG (NEG); PHENCYCLIDINE NEG (NEG)
[2017-09-15 12:55] LABS: ANISOCYTOSIS PRESENT; HYPOCHROMIA PRESENT; MICROCYTOSIS PRESENT
--- NOTE | 2017-09-15 13:09 | ED.ADGEN ---
Past Medical History Past Medical History: Asthma, Diabetes-Type II, GERD, Hypertension Additional Past Medical Histor: constipation, "digestive problems" Past Surgical History: Hysterectomy Additional Past Surgical Histo: hernia Alcohol Use: Occasionally Drug Use: None Adult General Chief Complaint Chief Complaint: ABDOMINAL PAIN HPI HPI Patient is a 42 year old woman, history of GERD, hypertension, chronic abdominal pain, that is post hysterectomy, who presents the emergency department with complaint of recurrence of her chronic lower abdominal pain. Patient states that she is experiencing nausea, for which she's been taking Zofran last dose was last night, and abdominal pain was consistent with painful which is previously been evaluated. She states that she was told to follow up with GI, and has an appointment with a GI physician on the of this month. She denies any changes in her typical discomfort, any vomiting, any diarrhea, states her last bowel was yesterday and was normal. No injuries, denies any drugs, alcohol, cigarettes, chest pain, shortness of breath. She states that the pain comes and goes, was worse today, prompting her to come to the ED. She has not taking anything for pain prior to coming to the ED. No recent antibiotic use, denies any urinary complaints, denies any discharge or drainage from the vagina, any concerns for STI exposures. Patient has been evaluated for her chronic abdominal pain at several facilities previously, including imaging and laboratory studies which did not elucidate a cause. She states that she last spoke to her primary care provider last week. Review of Systems Review of Systems Constitutional: Denies fever or chills. [] Eyes: Denies change in visual acuity. [] HENT: Denies nasal congestion or sore throat. [] Respiratory: Denies cough or shortness of breath. [] Cardiovascular: Denies chest pain or edema. [] GI: Denies vomiting, bloody stools or diarrhea. [] Blinking of nausea, and left -sided lower abdominal pain, consistent with her chronic abdominal pain. : Denies dysuria. [] Musculoskeletal: Denies back pain or joint pain. [] Integument: Denies rash. [] Neurologic: Denies headache, focal weakness or sensory changes. [] Endocrine: Denies polyuria or polydipsia. [] Lymphatic: Denies swollen glands. [] Psychiatric: Denies depression or anxiety. [] Current Medications Current Medications Current Medications Medications (Trade) Dose Ordered Sig/[facility] Start Time Stop Time Status Last Admin Dose Admin Dicyclomine HCl (Bentyl) 10 mg 1X ONCE 09/15/17 11:00 09/15/17 11:01 DC 09/15/17 11:17 10 MG Multi-Ingredient Mouthwash/Gargle (Gi Cocktail Single Dose) 15 ml 1X ONCE 09/15/17 11:00 09/15/17 11:01 DC 09/15/17 11:17 15 ML Ondansetron HCl (Zofran) 4 mg 1X ONCE 09/15/17 09:30 09/15/17 09:33 DC 09/15/17 09:58 4 MG Allergies Allergies Allergies Coded Allergies Type Severity Reaction Last Updated Verified ibuprofen Allergy Severe Anaphylaxis 01/06/15 Yes naproxen Allergy Severe Anaphylaxis 01/06/15 Yes tramadol Allergy Intermediate rash 05/16/17 Yes Physical Exam Physical Exam Constitutional: Well developed, well nourished, no acute distress, non-toxic appearance. [] HENT: Normocephalic, atraumatic, bilateral external ears normal, oropharynx moist, no oral exudates, nose normal. [] Eyes: PERRLA, EOMI, conjunctiva normal, no discharge. [] Neck: Normal range of motion, no tenderness, supple, no stridor. [] Cardiovascular:Heart rate regular rhythm, no murmur, S1, S2, rubs or gallops. [] Lungs & Thorax: Bilateral breath sounds clear to auscultation, no wheezing, rhonchi, rales. No chest or crepitus or tenderness. [] Abdomen: Bowel sounds normal, soft, mild tenderness palpation in the left lower abdomen, no rebound, rigidity, no guarding, no masses, no pulsatile masses. [] Skin: Warm, dry, no erythema, no rash. [] Back: No tenderness, no CVA tenderness. [] Extremities: No tenderness, no cyanosis, no clubbing, ROM intact, no edema. Negative Homans sign.[] Neurologic: Alert and oriented X 3, normal motor function, normal sensory function, no focal deficits noted. [] Psychologic: Affect normal, judgement normal, mood normal. [] Current Patient Data Vital Signs Vital Signs Date Time Temp Pulse Resp B/P (MAP) Pulse Ox O2 Delivery O2 Flow Rate FiO2 09/15/17 13:27 78 18 126/86 (99) 97 Room Air 09/15/17 09:27 98.3 98.3 Lab Values Laboratory Tests Test 09/15/17 09:25 09/15/17 09:50 Urine Collection Type Unknown Urine Color Yellow Urine Clarity Clear Urine pH 6.0 Urine Specific [place] 1.020 Urine Protein Negative mg/dL (NEG-TRACE) Urine Glucose (UA) Negative mg/dL (NEG) Urine Ketones (Stick) Negative mg/dL (NEG) Urine Blood Negative (NEG) Urine Nitrite Negative (NEG) Urine Bilirubin Negative (NEG) Urine Urobilinogen Dipstick 0.2 mg/dL (0.2 mg/dL) Urine Leukocyte Esterase Small (NEG) Urine RBC Occ /HPF (0-2) Urine WBC 1-4 /HPF (0-4) Urine Squamous Epithelial Cells Mod /LPF Urine Bacteria Few /HPF (0-FEW) Urine Mucus Marked /LPF Urine Opiates Screen Neg (NEG) Urine Methadone Screen Neg (NEG) Urine Barbiturates Neg (NEG) Urine Phencyclidine Screen Neg (NEG) Urine Amphetamine/Methamphetamine Neg (NEG) Urine Benzodiazepines Screen Neg (NEG) Urine Cocaine Screen Neg (NEG) Urine Cannabinoids Screen Neg (NEG) Urine Ethyl Alcohol Neg (NEG) White Blood Count 7.5 x10^3/uL (4.0-11.0) Red Blood Count 5.85 x10^6/uL (3.50-5.40) H Hemoglobin 13.0 g/dL (12.0-15.5) Hematocrit 41.4 % (36.0-47.0) Mean Corpuscular Volume 71 fL (79-100) L Mean Corpuscular Hemoglobin 22 pg (25-35) L Mean Corpuscular Hemoglobin Concent 32 g/dL (31-37) Red Cell Distribution Width 14.5 % (11.5-14.5) Platelet Count 184 x10^3/uL (140-400) Neutrophils (%) (Auto) 72 % (31-73) Lymphocytes (%) (Auto) 20 % (24-48) L Monocytes (%) (Auto) 6 % (0-9) Eosinophils (%) (Auto) 1 % (0-3) Basophils (%) (Auto) 1 % (0-3) Neutrophils # (Auto) 5.4 x10^3uL (1.8-7.7) Lymphocytes # (Auto) 1.5 x10^3/uL (1.0-4.8) Monocytes # (Auto) 0.5 x10^3/uL (0.0-1.1) Eosinophils # (Auto) 0.1 x10^3/uL (0.0-0.7) Basophils # (Auto) 0.0 x10^3/uL (0.0-0.2) Platelet Estimate Adequate (ADEQUATE) Hypochromasia Present Anisocytosis Present Microcytosis Present Sodium Level 139 mmol/L (136-145) Potassium Level 3.8 mmol/L (3.5-5.1) Chloride Level 104 mmol/L (98-107) Carbon Dioxide Level 23 mmol/L (21-32) Anion Gap 12 (6-14) Blood Urea Nitrogen 13 mg/dL (7-20) Creatinine 0.6 mg/dL (0.6-1.0) Estimated GFR (Cockcroft-Gault) 134.0 BUN/Creatinine Ratio 22 (6-20) H Glucose Level 98 mg/dL (70-99) Calcium Level 8.8 mg/dL (8.5-10.1) Total Bilirubin 1.2 mg/dL (0.2-1.0) H Aspartate Amino Transferase (AST) 12 U/L (15-37) L Alanine Aminotransferase (ALT) 11 U/L (14-59) L Alkaline Phosphatase 78 U/L (46-116) Total Protein 7.6 g/dL (6.4-8.2) Albumin 3.6 g/dL (3.4-5.0) Albumin/Globulin Ratio 0.9 (1.0-1.7) L Lipase 130 U/L (73-393) Laboratory Tests 09/15/17 09:50 Laboratory Tests 09/15/17 09:50 EKG EKG Not indicated.[] Radiology/Procedures Radiology/Procedures [][facility] [address] [place], [place] [id number] IMAGING REPORT Signed PATIENT: DORIAN STEWART ACCOUNT: [id number] : 1975 LOCATION: ER AGE: 42 SEX: F EXAM STATUS: REG ER ORD. PHYSICIAN: JEANE REYES DO REASON: abd pain PROCEDURE: ACUTE ABDOMEN SERIES Acute abdominal series to include a PA chest radiograph 09/15/2017 Clinical History: Abdominal pain for months. A PA digital radiograph of the chest was obtained. Supine and erect AP digital radiographs of the abdomen/pelvis were obtained. Comparison study is dated 12/22/2016. The cardiac and mediastinal silhouettes are within normal limits in size and configuration. No pulmonary infiltrate is seen. No pleural effusion or pneumothorax is noted. The abdominal bowel gas pattern is nonobstructive. There is no evidence of free air. No radiopaque calculus is seen. The osseous structures are grossly intact. Impression: Negative study. DICTATED and SIGNED BY: MARYCARMEN TRISTAN MD DATE: 09/15/17 1226 CC: ALEJANDRA BURGER MD; JEANE REYES DO ~ Course & Med Decision Making Course & Med Decision Making Pertinent Labs and Imaging studies reviewed. (See chart for details) Patient well-appearing, afebrile, vital signs within normal limits. Complaining of recurrence of her chronic abdominal pain, for which she is scheduled to follow up with GI [facility] next week. Patient agreeable and laboratory studies performed, receiving analgesia and antiemetics in the ED. 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 Did discuss findings with patient, she is resting comfortably at this time, agreeable plan for discharge with [facility], to follow-up with the GI physician as scheduled next week, and return to the ED for any new or concerning symptoms as discussed. Patient discharged home in stable condition with plan as above. Dragon Disclaimer Dragon Disclaimer This electronic medical record was generated, in whole or in part, using a voice recognition dictation system. Departure Impression: Primary Impression: Abdominal pain in female Disposition: 01 HOME, SELF-CARE Condition: IMPROVED Scripts Dicyclomine Hcl (BENTYL) 10 Mg Capsule 10 MG PO PRN QID Y for ABD CRAMPING, #12 TAB Prov: JEANE REYES DO 09/15/17 Ondansetron Hcl (ZOFRAN) 4 Mg Tablet 1 TAB PO PRN Q8HR Y for NAUSEA, #12 TAB Prov: JEANE REYES DO 09/15/17 JEANE REYES DO Sep 15, 2017 13:09
[2017-09-15 13:27] VITALS: BP 126/86
[2017-09-15] MEDS ORDERED: DICY10CA53 PO (13:32)
[2017-09-15] MEDS ORDERED: ONDA4TAB7 PO (13:32)
[2017-09-15 14:07] LABS: PLT ESTIMATE ADEQUATE (ADEQUATE)
== END 2017-09-15 13:57 | disposition home or self-care (01) ==
LOC: ER 09:07
DX: R10.30 Lower abdominal pain, unspecified (principal); R11.0 Nausea; K21.9 Gastro-esophageal reflux disease without esophagitis; J45.909 Unspecified asthma, uncomplicated; E11.9 Type 2 diabetes mellitus without complications; I10 Essential (primary) hypertension; Z90.710 Acquired absence of both cervix and uterus
CPT/HCPCS: 36415; 74022; 80053; 80307; 81001; 83690; 85025; 87086; 96374; 99285; J2405; G0479

== ENCOUNTER → 2020-01-30 | Outpatient (CLI) | payer OTHER ==
[~2020-01-30] MED LIST changes: +DICY10CA53 PO; +HYDR-3164 PO; -HYDR-971 PO; +ONDA4TAB7 PO
--- NOTE | 2020-01-30 14:34 | RAD ---
HAND RIGHT 3V, WRIST 3V RIGHT DATE: 01/30/2020 12:00 AM INDICATION: Hand and wrist pain and numbness COMPARISON: None. FINDINGS: Bones: There is no evidence of acute fracture or dislocation. Joints: The joint spaces are normal. Miscellaneous: None. IMPRESSION: No evidence of acute fracture. Electronically signed by: Cheng Wilkinson MD (01/30/2020 2:31 PM) [facility] [place]
--- NOTE | 2020-01-30 14:34 | RAD ---
HAND RIGHT 3V, WRIST 3V RIGHT DATE: 01/30/2020 12:00 AM INDICATION: Hand and wrist pain and numbness COMPARISON: None. FINDINGS: Bones: There is no evidence of acute fracture or dislocation. Joints: The joint spaces are normal. Miscellaneous: None. IMPRESSION: No evidence of acute fracture. Electronically signed by: Cheng Wilkinson MD (01/30/2020 2:31 PM) [facility] [place]
== END | disposition home or self-care (01) ==
LOC: RAD 12:58
PROVIDERS: ATTEND Family Medicine
DX: M25.531 Pain in right wrist (principal); M79.641 Pain in right hand; R20.0 Anesthesia of skin
CPT/HCPCS: 73110; 73130